=== PATIENT | female | born 1940 | race Hispanic/Latino ===

== ENCOUNTER 2020-03-18 08:14 | Outpatient (CLI) | payer MEDICARE, OTHER ==
--- NOTE | 2020-03-18 11:34 | Mammography Report ---
DIGITAL SCREENING MAMMOGRAM WITH CAD, 03/18/2020 INDICATION: Routine screening mammography. TECHNIQUE: Digital bilateral 2D mammography was obtained in the craniocaudal and mediolateral obliq ue projections. This examination was interpreted with the benefit of Computer-Aided Detection analysi s. COMPARISON: 08/14/2015 FINDINGS: Breast Density: The breasts are heterogeneously dense, which may obscure small masses. Left mammographic asymmetries are suggestive of one or more masses in the outer breast measuring 4+ c entimeters. No architectural distortion or suspicious calcifications of the left breast. There is no evidence of dominant mass, suspicious calcifications or architectural distortion in the right breast. IMPRESSION: Left asymmetries requiring additional imaging. Recommend recall for left lateral and spot compression MLO and CC views and global left breast ultrasound. Follow up recommendation: Special View: Spot Category 0: Incomplete. Needs additional imaging evaluation and/or prior mammograms for comparison. A "normal" or negative report should not discourage follow up or biopsy of a clinically significant f inding. A written summary of these findings will be mailed to the patient. The patient will be entered into a mammography reporting system which will generate a reminder letter for the patient's next appointmen t at the appropriate interval. The [employer] recommends yearly mammograms starting at age 40 and continuing as l christopher as a woman is in good health. Breast MRI is recommended for women with an approximate 20-25% or greater lifetime risk of breast cancer, including women with a strong family history of breast or ova jack cancer or who have been treated for Hodgkin's disease. Signer Name: Martin Samaniego MD Signed: 03/18/2020 11:30 AM Workstation Name: [id number]
== END 2020-03-18 08:15 | disposition home or self-care (01) ==
LOC: SPVWC 08:14
PROVIDERS: ATTEND Family Medicine
DX: Z12.31 Encounter for screening mammogram for malignant neoplasm of breast (principal)
CPT/HCPCS: 77067

== ENCOUNTER 2020-04-22 08:05 | Outpatient (CLI) | payer MEDICARE, OTHER ==
--- NOTE | 2020-04-22 13:25 | Mammography Report ---
DIGITAL LEFT DIAGNOSTIC MAMMOGRAM WITH CAD, WITHOUT TOMOSYNTHESIS 04/22/2020 INDICATION: Post ultrasound-guided biopsy TECHNIQUE: Digital left mammographic imaging was performed. This examination was interpreted with the benefit of Computer-aided Detection analysis. COMPARISON: Mammogram 03/18/2020, left mammogram 04/14/2020 Breast Density: The breasts are heterogeneously dense, which may obscure small masses. FINDINGS: Clip is seen at the lower medial anterior margin of the lobular mass IMPRESSION: Appropriate clip position Follow up recommendation: Per biopsy results Post biopsy imaging. A "normal" or negative report should not discourage follow up or biopsy of a clinically significant f inding. A written summary of these findings will be mailed to the patient. The patient will be entered into a mammography reporting system which will generate a reminder letter for the patient's next appointmen t at the appropriate interval. According to the [employer], yearly mammograms are recommended starting at age 40 and continuing as long as a woman is in good health. Breast MRI is recommended for women with an cristobal roximately 20-25% or greater lifetime risk of breast cancer, including women with a strong family his tory of breast or ovarian cancer and women who have been treated for Hodgkin's disease. Signer Name: Rommel Stark MD Signed: 04/22/2020 1:21 PM Workstation Name: [id number]
--- NOTE | 2020-04-22 13:29 | Ultrasound Report ---
ULTRASOUND-GUIDED LEFT BREAST VACUUM-ASSISTED MAMMOTOME BIOPSY INDICATION: Lobular mass left upper outer quadrant on ultrasound and mammogram COMPARISON: Left breast ultrasound 04/14/2020, left mammogram 04/14/2020 CONSENT: Procedure was discussed at length in advance with the patient. Possible risks and benefits w ere discussed including the possibility of bleeding. Postbiopsy care was discussed. Opportunity for q uestions was provided. Patient is not on anticoagulant therapy and reports no pertinent allergies. PROCEDURE: Timeout was performed. The area of concern in the 2:00 position, 7 cm the nipple, was targ eted sonographically. Using aseptic technique and under local anesthesia, with real-time sonographic guidance, the area of interest was biopsied. Multiple specimens were obtained with a 13-gauge mammoto me vacuum-assisted device and sent to pathology for analysis. A metallic clip was placed at the end o f the procedure. Site was secured and the patient was sent for post biopsy mammogram. Patient tolerat ed the procedure well and left the department in good condition. IMPRESSION: Successful ultrasound-guided left breast biopsy Signer Name: Rommel Stark MD Signed: 04/22/2020 1:25 PM Workstation Name: [id number]
== END 2020-04-22 08:06 | disposition home or self-care (01) ==
LOC: SPVWC 08:05
PROVIDERS: ATTEND Family Medicine
DX: N63.21 Unspecified lump in the left breast, upper outer quadrant (principal); R92.8 Other abnormal and inconclusive findings on diagnostic imaging of breast
CPT/HCPCS: 88305

== ENCOUNTER 2020-06-12 08:28 | Outpatient (CLI) | payer MEDICARE, OTHER | END 2020-06-12 08:29 | disposition home or self-care (01) | LOC: LABHHL 08:28 | PROVIDERS: ATTEND Surgery | DX: C50.912 Malignant neoplasm of unspecified site of left female breast (principal) | CPT/HCPCS: 88305 ==

== ENCOUNTER 2020-06-18 10:29 | Outpatient (CLI) | payer MEDICARE, OTHER ==
--- NOTE | 2020-06-19 08:17 | PET Report ---
PET/CT HISTORY: C50.412. Initial staging of left breast cancer TECHNIQUE: The patient's fasting blood glucose was 117. The patient weighed 164 lbs. The patient w as injected with 15.3 mCi of FDG in the right forearm at 1106 hours and imaging was started at 1203 h ours. The patient was imaged from the skull base to the thighs. All CT scans at this location are pe rformed using CT dose reduction for ALARA by means of automated exposure control. Images were reviewe d on a workstation. COMPARISON: Ultrasound breast biopsy 05/21/2020. Diagnostic mammogram 04/22/2020. FINDINGS: IMAGED BRAIN: Physiologic FDG uptake. NECK: Physiologic FDG uptake. CHEST WALL: A 5.9 x 3.1 cm hypermetabolic mass is identified in the lateral left breast with max SUV measuring 10.4. MEDIASTINUM: Physiologic FDG uptake. Borderline cardiomegaly with dense mitral valve calcifications. LUNGS: Physiologic FDG uptake. No suspicious nodule is detected. HEPATOBILIARY: Physiologic FDG uptake. Background max SUV of the right hepatic lobe measures 4.7. No suspicious liver lesion on CT. PANCREAS: Physiologic FDG uptake. SPLEEN: Physiologic FDG uptake. KIDNEYS/BLADDER: Physiologic FDG uptake. ADRENAL GLANDS: Physiologic FDG uptake. GI/MESENTERY: Physiologic FDG uptake. PELVIC VISCERA: Physiologic FDG uptake. There is a 1.9 cm well-circumscribed soft tissue density nod ule in the anterior pelvic fatty tissue on CT image 195. Max SUV measures 2.2. The etiology of this i s unclear but it has a benign appearance. LYMPH NODES: Physiologic FDG uptake. No adenopathy is detected. OSSEOUS STRUCTURES: Physiologic FDG uptake. Mild osteopenia. Mild to moderate diffuse degenerative c hanges throughout the spine. No suspicious bony lesions appreciated. ADDITIONAL FINDINGS: None. IMPRESSION: Hypermetabolic left breast mass as described consistent with primary left breast cancer. No FDG avid metastatic disease is detected on PET. Signer Name: Cipriano Canales Jr, MD Signed: 06/19/2020 8:12 AM Workstation Name: [id number]
== END 2020-06-18 10:30 | disposition home or self-care (01) ==
LOC: PET 10:29
PROVIDERS: ATTEND Internal Medicine Hematology & Oncology
DX: C50.412 Malignant neoplasm of upper-outer quadrant of left female breast (principal); I10 Essential (primary) hypertension; N63.20 Unspecified lump in the left breast, unspecified quadrant
CPT/HCPCS: 78815; 82962; A9552

== ENCOUNTER 2020-06-23 12:43 | Outpatient (CLI) | payer MEDICARE, OTHER ==
--- NOTE | 2020-06-23 14:29 | Ultrasound Report ---
EXAMINATION: Left Complete Breast Ultrasound, 06/23/2020 INDICATION: Known biopsy-proven left breast cancer. COMPARISON: Left breast ultrasound 04/14/20. FINDINGS: Complete sonographic evaluation of all 4 quadrants and retroareolar region was performed. There is a 4 cm irregular solid mass at the 2:00 position 7 cm from the nipple which measured 4.3 cm in greatest dimension previously. There are a couple of benign-appearing lymph nodes in the left axil la, the largest of which measures 5.9 mm. There is a 5.4 mm ovoid, macrolobulated, hypoechoic solid nodule in the subareolar region at the 3:00 position. The longest axis parallels the skin. No posterior features are seen and no internal vascul arity is identified on Doppler exam. There is mild ductal prominence in the subareolar region.. IMPRESSION: 1. 4 cm mass at the 2:00 position measures slightly smaller and corresponds to the site of the patien t's known biopsy-proven malignancy. No pathologic adenopathy. 2. 5.4 mm solid nodule in the left subareolar region laterally is probably benign. A follow-up left b reast ultrasound is recommended in 6 months. Follow up recommendation: Ultrasound. A follow-up left breast ultrasound is recommended in 6 months t o document stability of the incidental small solid left breast nodule. BI-RADS Category 6: Known Biopsy-Proven Malignancy. Signer Name: Howie Myers MD Signed: 06/23/2020 2:25 PM Workstation Name: [id number]
== END 2020-06-23 12:44 | disposition home or self-care (01) ==
LOC: SPVWC 12:43
PROVIDERS: ATTEND Surgery
DX: N63.21 Unspecified lump in the left breast, upper outer quadrant (principal)

== ENCOUNTER 2020-07-03 05:54 | Day surgery (SDC) | payer MEDICARE, OTHER ==
--- NOTE | 2020-07-01 12:02 | Anesthesia Consultation ---
Anesthesia Consult and Med Hx Date of service: 07/03/20 - Airway Anesthetic Teeth Evaluation: Crowns ROM Head & Neck: Adequate Mental/Hyoid Distance: Adequate Mallampati Class: Class II Intubation Access Assessment: Good - Pre-Operative Health Status ASA Pre-Surgery Classification: ASA3 Proposed Anesthetic Plan: General, MAC (MAC; GA if needed) - Pulmonary Hx Smoking: Yes (48 years ago) Hx Asthma: Yes (in the past) SOB: No (+2FS. Does 30" on treadmill) - Cardiovascular System Hx Hypertension: Yes Hx Coronary Artery Disease: No (ECHO recently. NST in 2018. +Cardiac clearance) Hx Cardia Arrhythmia: Yes (A-fib) Hx Valvular Heart Disease: Yes (MVP) - Central Nervous System Hx Seizures: Yes (migraines) - Gastrointestinal Hx Gastroesophageal Reflux Disease: Yes
[2020-07-03] MEDS ORDERED: VANCOMYCIN/NS 1 GM/250 ML 1 GM/250 ML BAG IV NR (07:00)
[2020-07-03] MEDS ORDERED: LACTATED RINGERS 1,000 ML IV SCH (07:00)
[2020-07-03] MEDS ORDERED: LIDOCAINE (1%) 10 MG/1 ML VIAL 20 ML MDV ONE (07:18)
[2020-07-03] MEDS ORDERED: BUPIVACAINE/PF (0.25%) 2.5 MG/ML 30 ML VIAL INFILTRATI ONE ×2 (07:18→08:16)
[2020-07-03] MEDS ORDERED: HEPARIN 10,000 UNITS/10 ML VIAL ONE (07:19)
[2020-07-03] MEDS ORDERED: SODIUM CHLORIDE 0.9% 100 ML ONE (07:19)
[2020-07-03] MEDS ORDERED: HYDROmorphone 1 MG/1 ML INJ IV PRN ×2 (07:22)
[2020-07-03] MEDS ORDERED: ONDANSETRON 4 MG/2 ML INJ IV PRN (07:22)
--- NOTE | 2020-07-03 07:22 | Anesthesia Day of Surgery ---
Anesthesia Day of Surgery - Day of Surgery Patient Examined: Yes Patient H&P Reviewed: Yes Patient is NPO: Yes Beta Blockers: Yes
[2020-07-03] MEDS ORDERED: HYDROmorphone 1 MG/1 ML INJ ONE (07:44)
[2020-07-03] MEDS ORDERED: propofoL 200 MG/20 ML VIAL IV ONE (07:45)
[2020-07-03] MEDS ORDERED: LIDOCAINE (1%) 10 MG/1 ML VIAL 20 ML MDV INFILTRATI ONE (08:16)
[2020-07-03] MEDS ORDERED: HEPARIN 10,000 UNITS/10 ML VIAL IR ONE (08:16)
[2020-07-03] MEDS ORDERED: SODIUM CHLORIDE 0.9% 100 ML IVPB IV ONE (08:17)
[2020-07-03] MEDS ORDERED: SODIUM CHLORIDE 0.9% IRR 1,500 ML BOTTLE IR ONE (08:17)
[2020-07-03] MEDS ORDERED: LIDOCAINE MPF (2%) 20 MG/1 ML VIAL 5 ML ONE (08:56)
[2020-07-03] MEDS ORDERED: ONDANSETRON 4 MG/2 ML INJ ONE (08:56)
--- NOTE | 2020-07-03 08:59 | Short Stay Summary ---
Short Stay Documentation Date of service: 07/03/20 - History Principal diagnosis: left breast cancer H&P: obtained from office - Allergies and Medications Current Medications: Allergies Penicillins Allergy (Verified 07/01/20 12:35) Hives Sulfa (Sulfonamide Antibiotics) Allergy (Verified 07/01/20 12:35) Hives Home Medications Medication Instructions Recorded Confirmed Last Taken Type Bystolic (Nf) 2.5 mg PO QHS 07/01/20 07/01/20 Unknown History Pravastatin [Pravachol] 40 mg PO QHS 07/01/20 07/01/20 Unknown History amLODIPine [Norvasc] 5 mg PO DAILY 07/01/20 07/01/20 Unknown History Active Medications Hydromorphone HCl (Dilaudid) 0.25 mg IV Q10MIN PRN PRN Reason: Pain, Moderate (4-6) Stop: 07/03/20 23:00 Hydromorphone HCl (Dilaudid) 0.5 mg IV Q10MIN PRN PRN Reason: Pain , Severe (7-10) Stop: 07/03/20 23:00 Vancomycin HCl (Vancomycin/Ns 1 Gm/250 Ml) 1 gm in 250 mls @ 167.007 mls/hr IV PREOP NR; Protocol Stop: 07/03/20 23:01 Last Admin: 07/03/20 07:20 Dose: 167.007 mls/hr Documented by: Lactated Ringer's (Lactated Ringers) 1,000 mls @ 75 mls/hr IV DIRECT MARY ELLEN Last Admin: 07/03/20 07:00 Dose: 75 mls/hr Documented by: Ondansetron HCl (Zofran) 4 mg IV ONCE PRN PRN Reason: Nausea And Vomiting Stop: 07/03/20 15:00 - Brief post op/procedure progress note Date of procedure: 07/03/20 Pre-op diagnosis: left breast cancer Post-op diagnosis: same Procedure: right internal jugular port placement with mindray u/s guidance Anesthesia: MAC, local Findings: good placement of port without PTX Surgeon: GODFREY BROOKE Estimated blood loss: minimal Pathology: none Condition: stable - Hospital course Hospital course: Pt observed in PACU and discharged home in stable condition when criteria met - Disposition Condition at discharge: Good Disposition: DC-01 TO HOME OR SELFCARE Short Stay Discharge Plan Activity: no restrictions, other Diet: regular Wound: open to air Additional Instructions: Please see printed discharge instructions Follow up with: ELINOR MARTINEZ MD [Primary Care Provider] - 7 Days GODFREY BROOKE DO [Staff Physician] - 14 Days Prescriptions: Ibuprofen [Motrin 800 MG tab] 800 mg PO Q8HR PRN #30 tablet PRN Reason: Pain, Moderate (4-6) HYDROcodone/APAP 5-325 [[place] 5/325] 1 each PO Q6HR PRN #10 tablet PRN Reason: Pain , Severe (7-10)
--- NOTE | 2020-07-03 09:17 | Fluoroscopy Report ---
FL central venous dev plct INDICATION / CLINICAL INFORMATION: BREAST CANCER/INSERTION INFUSAPORT COMPARISON: None available. FINDINGS: SUPPORT DEVICES: Right port with tip seen terminating in the lower SVC. HEART / MEDIASTINUM: No significant abnormality. Mitral annulus consultations. LUNGS / PLEURA: Lungs are clear. Costophrenic sulci are sharp. No pneumothorax. ADDITIONAL FINDINGS: No significant additional findings. IMPRESSION: 1. Right port terminates in SVC. Signer Name: Maikel Epps MD Signed: 07/03/2020 9:12 AM Workstation Name: [id number]
[2020-07-03 10:08] VITALS: BP 121/69
--- NOTE | 2020-07-03 11:04 | Post Anesthesia Evaluation ---
- Post Anesthesia Evaluation Patient Participated: Yes Airway Patent: Yes Stable Respiratory Function: Yes Nausea/Vomiting: No Temp > 96.8F: Yes Pain Manageable: Yes Adequeate Hydration: Yes Anesthesia Complications: No Block Receding Appropriately: Not Applicable Patient on Ventilator: No
--- NOTE | 2020-07-05 23:25 | Operative Report ---
Operative Report Operative Report: Date of procedure: 07/03/20 Pre-op diagnosis: left breast cancer Post-op diagnosis: same Procedure: right internal jugular port placement with mindray u/s guidance Anesthesia: MAC, local Findings: good placement of port without PTX Surgeon: GODFREY BROOKE Estimated blood loss: minimal Pathology: none Condition: stable - Hospital course Hospital course: Pt observed in PACU and discharged home in stable condition when criteria met HPI and indication: 80 yo F with a recent diagnosis of left breast cancer who presented to surgery clinic for port placement evaluation. Patient's oncologist Dr. Cloud evaluated the patient and deemed her a candidate for chemotherapy. All risks, benefits, alternatives to surgery were discussed with the patient and questions answered. Consent obtained for port placement with ultrasound guidance. Procedure in detail: Patient was identified in the preoperative area and taken back to the operating room and placed on the operating room table in supine position. After anesthesia was induced, both arms were tucked and bony prominences padded appropriately. A shoulder roll was placed. Bilateral neck and upper chest were prepped and draped in the usual sterile fashion and time out performed. Using bedside ultrasound, the right internal jugular and subclavian veins were identified. All components of the port set were flushed with heparized saline. The patient was placed in trendelenberg. The skin was anesthetized at the intended puncture site and the right subclavian vein was accessed on the first stick. There was dark red, nonpulsatile blood. The wire was threaded but met resistance. The wire and needed were removed. The decision was made to access the internal jugular vein. The right IJ vein was again identified with bedside ultarsound and accessed on the first stick. There was dark red, nonpulsatile blood. The wire was threaded but there was resistance so the wire was removed. Blood was able to be aspirated from the needle indicating it was still positioned in the vein. A glidewire was then inserted through the needed and threaded easily without resistance. The positioning of the wire was confirmed with fluoroscopy. The needle was removed. The skin at the port site was then anesthetized and a 4cm transverse incision made in the right upper chest using 15 blade. Dissection was carried down to the prepectoral fascia using electrocautery. A subcutaneous pocket was then created using blunt dissection and electrocautery. The catheter was then tunneled from the pocket to the wire. The dilator/breakaway catheter sheath was inserted under direct fluro guidance. The wire and dilator was removed. The catheter was then inserted through the breakaway sheath and the sheath removed. The catheter was retracted until flush below the skin. Under continuous fluoroscopy, the catheter was pulled back until the tip was positioned at the cavoatrial junction. The port was connected to the catheter and secured to the prepectoral fascia in 2 locations with 3-0 vicryl interrupted stitches. The pocket was irrigated and checked for hemostasis which was carefully ensured. The port was then tested with heparized saline. There was good blood flow and it flushed easily. 3000 Units of heparin was then instilled into the port. The wound was then closed in a layered fashion. The deep dermal layer was closed using interrupted 3-0 vicryl sutures. The skin was closed using 4-0 monocryl running subcuticular stitch and skin glue. At the end of the case all sponge, instrument, sharp counts were correct x2. A post op chest xray showed no PTX and the port was in good position. The patient was awoken from anesthesia and taken to PACU in stable condition.
== END 2020-07-03 10:25 | disposition home or self-care (01) ==
LOC: OR 05:54
PROVIDERS: ATTEND Surgery
DX: C50.912 Malignant neoplasm of unspecified site of left female breast (principal); Z20.828 Contact with and (suspected) exposure to other viral communicable diseases; G43.909 Migraine, unspecified, not intractable, without status migrainosus; I42.9 Cardiomyopathy, unspecified; I48.91 Unspecified atrial fibrillation; I10 Essential (primary) hypertension; J45.909 Unspecified asthma, uncomplicated; K21.9 Gastro-esophageal reflux disease without esophagitis; M19.90 Unspecified osteoarthritis, unspecified site; Z87.891 Personal history of nicotine dependence; Z79.899 Other long term (current) drug therapy; Z98.41 Cataract extraction status, right eye; Z88.0 Allergy status to penicillin; Z88.2 Allergy status to sulfonamides; Z98.42 Cataract extraction status, left eye; Z98.890 Other specified postprocedural states
CPT/HCPCS: 36561; 77001; C1769; C1788; J1170; J1644; J2405; J2704; J3370; J7120; U0003

== ENCOUNTER 2020-12-21 12:49 | Outpatient (CLI) | payer MEDICARE, OTHER ==
--- NOTE | 2020-12-21 13:24 | Mammography Report ---
DIGITAL DIAGNOSTIC MAMMOGRAM WITH CAD CONVENTIONAL, 12/21/2020 CLINICAL INFORMATION / INDICATION: Follow-up of left breast cancer. TECHNIQUE: Digital left mammographic imaging was performed. This examination was interpreted with the benefit of Computer-aided Detection analysis. COMPARISON: 04/22/2020, 04/14/2020, 03/18/2020 FINDINGS: Breast Density: The breast is heterogeneously dense, which may obscure small masses. The previously described 2:00 mass is not clearly seen. No new suspicious calcification, mass or arch itectural distortion is visualized. Benign appearing generalized calcifications are unchanged. IMPRESSION: The previously described left breast mass is not clearly visualized. No other new signifi cant mammographic abnormality of the left breast. Follow up recommendation: Clinical exam BI-RADS Category 6: Known Biopsy-Proven Malignancy. A "normal" or negative report should not discourage follow up or biopsy of a clinically significant f inding. A written summary of these findings will be mailed to the patient. The patient will be entered into a mammography reporting system which will generate a reminder letter for the patient's next appointmen t at the appropriate interval. According to the [employer], yearly mammograms are recommended starting at age 40 and continuing as long as a woman is in good health. Breast MRI is recommended for women with an cristobal roximately 20-25% or greater lifetime risk of breast cancer, including women with a strong family his tory of breast or ovarian cancer and women who have been treated for Hodgkin's disease. Signer Name: Dc Funk MD Signed: 12/21/2020 1:20 PM Workstation Name: [email or web address]
== END 2020-12-21 12:50 | disposition home or self-care (01) ==
LOC: SPVWC 12:49
PROVIDERS: ATTEND Surgery
DX: C50.412 Malignant neoplasm of upper-outer quadrant of left female breast (principal)

== ENCOUNTER 2021-01-20 10:06 | Outpatient (CLI) | payer MEDICARE, OTHER ==
--- NOTE | 2021-01-20 12:17 | Ultrasound Report ---
ULTRASOUND BREAST LEFT LIMITED, 01/20/2021 CLINICAL INFORMATION / INDICATION: LEFT BREAST CA C50.412. Patient has history of left breast cancer and presents for evaluation of response to chemotherapy. TECHNIQUE: Targeted ultrasound evaluation was performed of the area of interest. COMPARISON: Prior mammogram 12/21/2020 and left breast ultrasound 06/23/2020 FINDINGS: There has been interval resolution of the previously seen irregular mass in the 1 to 2:00 position of the left breast. Incidental note is made of duct ectasia in the subareolar to 3:00 left breast, with a few benign-appearing coarse intraductal calcifications seen in the 3:00 position located 3 cm from the nipple. IMPRESSION: 1. Interval resolution of the previously seen irregular mass in the 1 to 2:00 position of the left br east. 2. Incidental duct ectasia in the subareolar to 3:00 left breast, with a few benign-appearing intradu ctal calcifications. Follow up recommendation: No recall. BI-RADS Category 6: Known Biopsy-Proven Malignancy. A normal or "negative" report should not preclude biopsy or follow-up of a clinically suspicious find ing. Signer Name: Katy Fox MD Signed: 01/20/2021 12:13 PM Workstation Name: [id number] [email or web address]
== END 2021-01-20 10:07 | disposition home or self-care (01) ==
LOC: SPVWC 10:06
PROVIDERS: ATTEND Surgery
DX: C50.412 Malignant neoplasm of upper-outer quadrant of left female breast (principal); R92.1 Mammographic calcification found on diagnostic imaging of breast; N63.21 Unspecified lump in the left breast, upper outer quadrant

== ENCOUNTER 2021-03-10 07:01 | Day surgery (SDC) | payer MEDICARE, OTHER ==
[2021-03-10 14:35] VITALS: BP 104/48
== END 2021-03-10 14:15 | disposition home or self-care (01) ==
LOC: OR 07:01
PROVIDERS: ATTEND Surgery
DX: C50.412 Malignant neoplasm of upper-outer quadrant of left female breast (principal); I48.91 Unspecified atrial fibrillation; I10 Essential (primary) hypertension; J45.909 Unspecified asthma, uncomplicated; K21.9 Gastro-esophageal reflux disease without esophagitis; M19.90 Unspecified osteoarthritis, unspecified site; Z20.822 Contact with and (suspected) exposure to COVID-19; Z88.0 Allergy status to penicillin; Z98.890 Other specified postprocedural states; Z88.2 Allergy status to sulfonamides; Z79.899 Other long term (current) drug therapy; Z87.891 Personal history of nicotine dependence; Z98.41 Cataract extraction status, right eye; Z98.42 Cataract extraction status, left eye
CPT/HCPCS: 19281; 19282; 19301; 38525; 38792; 64450; 76098; 76942; 78800; 88307; A4648; A9541; J0330; J1100; J2001; J2250; J2370; J2405; J2704; J3010; J3370; J7120; Q9968; U0003; 88341; 88342

== ENCOUNTER 2021-06-03 09:23 | Outpatient (CLI) | payer MEDICARE, OTHER ==
--- NOTE | 2021-06-03 10:07 | Mammography Report ---
DIGITAL DIAGNOSTIC MAMMOGRAM WITH CAD , 06/03/2021 CLINICAL INFORMATION / INDICATION: PERSONAL HX OF BREAST CA Z85.3 TECHNIQUE: Digital bilateral mammographic imaging was performed. This examination was interpreted with the benefit of Computer-aided Detection analysis. COMPARISON: Prior mammogram 03/18/2020 FINDINGS: Breast Density: The breasts are heterogeneously dense, which may obscure small masses. No dominant mass, suspicious calcifications or architectural distortion in the right breast. Postlumpectomy and radiation changes are present in the left breast. Previously noted malignant appea ring mass on the 2019 mammogram has been surgically removed. No other interval change. Chemotherapy p ort is noted on the right. IMPRESSION: No mammographic evidence of malignancy. Follow up recommendation: Routine yearly BI-RADS Category 2: Benign. A "normal" or negative report should not discourage follow up or biopsy of a clinically significant f inding. A written summary of these findings will be mailed to the patient. The patient will be entered into a mammography reporting system which will generate a reminder letter for the patient's next appointmen t at the appropriate interval. According to the [employer], yearly mammograms are recommended starting at age 40 and continuing as long as a woman is in good health. Breast MRI is recommended for women with an cristobal roximately 20-25% or greater lifetime risk of breast cancer, including women with a strong family his tory of breast or ovarian cancer and women who have been treated for Hodgkin's disease. Signer Name: Noa Cohen MD Signed: 06/03/2021 10:03 AM Workstation Name: [email or web address]
== END 2021-06-03 09:24 | disposition home or self-care (01) ==
LOC: SPVWC 09:23
PROVIDERS: ATTEND Surgery
DX: R92.8 Other abnormal and inconclusive findings on diagnostic imaging of breast (principal); Z85.3 Personal history of malignant neoplasm of breast
CPT/HCPCS: 77066